=== PATIENT | female | born 1965 | race Caucasian/White ===

== ENCOUNTER → 2020-08-17 13:36 | Outpatient (CLI) | payer BC, SELFPAY ==
--- NOTE | ~2020-08-17 | MMUS_ITS ---
EXAMINATION: MM diagnostic [place] BI w [facility], US breast RT limited HISTORY: Small superficial pea size right breast lump TECHNIQUE: Additional 3-D tomosynthesis images of were performed and synthetic 2-D images were genera elias. CAD analysis was submitted and interpreted. High resolution breast ultrasound was performed. COMPARISON: 05/04/2019, 05/12/2017, 04/16/2016 bilateral digital screening mammogram examinations BREAST PARENCHYMAL COMPOSITION: The breasts are almost entirely fatty. FINDINGS: MAMMOGRAPHIC FINDINGS: A subtle several millimeter faint mammographic opacity is noted at the area of clinical complaint of small superficial PA-sized lateral right breast lump. Otherwise no suspicious mass, architectural distortion, malignant calcification, skin thickening or r etraction of either breast is evident. Right breast targeted ULTRASOUND: Targeted ultrasound at the area of clinical complaint at right breast 8:00 8 cm from the nipple revea ls a superficial parallel circumscribed 2.4 x 6.4 x 5.3 mm subcutaneous skin lesion, likely a sebaceo us cyst or possible solid skin lesion. IMPRESSION: 1. No mammographic evidence of malignancy; routine mammographic screening is recommended 2. 2.4 x 6.4 x 5.3 mm subcutaneous skin lesion of right breast 8:00 8 cm from nipple BI-RADS Category 2: Benign finding(s). Reviewed, dictated and finalized at location A. IMPRESSION: 1. No mammographic evidence of malignancy; routine mammographic screening is re commended 2. 2.4 x 6.4 x 5.3 mm subcutaneous skin lesion of right breast 8:00 8 cm from n ipple BI-RADS Category 2: Benign finding(s).
== END ==
PROVIDERS: Visit Provider Obstetrics & Gynecology Gynecology
DX: R92.8 Other abnormal and inconclusive findings on diagnostic imaging of breast (principal)
CPT/HCPCS: 76642; 77062; 77066; G0279

== ENCOUNTER → 2021-10-23 15:27 | Outpatient (CLI) | payer BC, SELFPAY ==
--- NOTE | ~2021-10-23 | MM_ITS ---
EXAMINATION: MM screening [facility] BI w [facility] HISTORY: Screening TECHNIQUE: Craniocaudal and mediolateral oblique 3-D tomosynthesis images were obtained and synthetic 2-D images were generated. CAD analysis was submitted and interpreted. COMPARISON: Comparison to multiple prior studies sequentially, with oldest reviewed study dated 12/14. BREAST PARENCHYMAL COMPOSITION: There are scattered areas of fibroglandular density. FINDINGS: There is no evidence of suspicious mass, calcification, or architectural distortion to sugg est malignancy in either breast. There has been no suspicious interval change. IMPRESSION: 1. No mammographic evidence of malignancy. 2. Recommend routine screening mammography in one year. BI-RADS Category 1: Negative Reviewed, dictated and finalized at location A.
== END ==
PROVIDERS: PCP Nurse Practitioner; Visit Provider Nurse Practitioner
DX: Z12.31 Encounter for screening mammogram for malignant neoplasm of breast (principal)
CPT/HCPCS: 77063; 77067

== ENCOUNTER 2022-01-07 08:35 | Outpatient (CLI) | payer BC, SELFPAY ==
[2022-01-07 19:24] LABS: Basophils Absolute Auto 0.1 K/mm3 (0.0-0.1); Eosinophils Absolute Auto 0.6 K/mm3 (0-0.3); Eosinophils Percent Auto 7.3 % (0-4.4); Hemoglobin 13.1 g/dL (12.0-15.0); Immature Granulocyte Absolute 0.05 K/mm3 (0.00-0.031); Immature Granulocyte Percent A 0.6 % (0-0.5); Lymphocytes Absolute Auto 2.39 K/mm3 (0.9-3.2); Mean Corpuscular HGB Conc 31.2 g/dl (32-36); Mean Corpuscular Hemoglobin 28.6 pg (26-34); Mean Corpuscular Volume 91.7 fl (80-100); Mean Platelet Volume 10.1 fl (7.4-10.4); Monocytes Absolute Auto 0.6 K/mm3 (0.1-0.6); Monocytes Percent Auto 7.4 % (2.6-8.5); Neutrophils Absolute Auto 4.5 K/mm3 (1.3-6.7); Neutrophils Percent Auto 54.7 % (45.5-73.1); Platelet Count Result 317 k/mm3 (150-375); Red Blood Count 4.58 M/mm3 (4.2-5.4); Red Cell Distribution Width 13.3 % (11.5-14.5); White Blood Count 8.3 K/mm3 (4.5-10.0)
[2022-01-07 19:48] LABS: Alanine Aminotransferase 23 U/L (6-35); Albumin Level 4.4 g/dL (3.5-5.1); Alkaline Phosphatase 102 U/L (38-126); Anion Gap 10 mmol/L (8-16); Aspartate Amino Transferase 66 U/L (14-36); Bilirubin,Total 0.4 mg/dL (0.2-1.3); Blood Urea Nitrogen 15 mg/dL (7-17); Calcium 9.3 mg/dL (8.4-10.2); Carbon Dioxide 28 mmol/L (22-30); Chloride 103 mmol/L (98-107); Cholesterol 169 mg/dL (0-200); Creatinine Urine 99.2 mg/dL; Estimated Glomerular Filt Rate > 60; Glucose 115 mg/dL (65-110); HDL Direct 36 mg/dL; Potassium 4.5 mmol/L (3.4-5.0); Sodium 141 mmol/L (137-145); Triglycerides 172 mg/dL (<150)
[2022-01-07 19:56] LABS: MALB Creatinine Ratio 7.3 mg/g (0-30); Microalbumin Urine Random 7.2 mg/L (0-16.7)
[2022-01-07 19:59] LABS: LDL Cholesterol Direct 92 mg/dL
== END 2022-01-07 08:36 | disposition home or self-care (01) ==
LOC: ANHGOSHLAB 08:39
PROVIDERS: PCP Nurse Practitioner; Visit Provider Nurse Practitioner
DX: E03.9 Hypothyroidism, unspecified (principal); E11.9 Type 2 diabetes mellitus without complications; E78.5 Hyperlipidemia, unspecified
CPT/HCPCS: 36415; 80053; 80061; 82043; 83036; 84443; 85025

== ENCOUNTER → 2022-12-01 13:39 | Outpatient (CLI) | payer BC, SELFPAY ==
--- NOTE | ~2022-12-01 | MM_ITS ---
EXAMINATION: MM screening [facility] BI w [facility] HISTORY: Screening TECHNIQUE: Craniocaudal and mediolateral oblique 3-D tomosynthesis images were obtained and synthetic 2-D images were generated. CAD analysis was submitted and interpreted. COMPARISON: No prior mammogram is available for comparison at this institution. BREAST PARENCHYMAL COMPOSITION: There are scattered areas of fibroglandular density. FINDINGS: There is no evidence of suspicious mass, calcification, or architectural distortion to sugg est malignancy in either breast. There has been no suspicious interval change. IMPRESSION: 1. No mammographic evidence of malignancy. 2. Recommend routine screening mammography in one year. BI-RADS Category 1: Negative Reviewed, dictated and finalized at location A.
== END ==
PROVIDERS: PCP Nurse Practitioner; Visit Provider Nurse Practitioner
DX: Z12.31 Encounter for screening mammogram for malignant neoplasm of breast (principal)
CPT/HCPCS: 77063; 77067

== ENCOUNTER 2023-01-08 10:07 | Outpatient (CLI) | payer BC, SELFPAY ==
[2023-01-08 19:04] LABS: Kit Draw Collected
== END 2023-01-08 10:08 | disposition home or self-care (01) ==
LOC: ANHGOSHLAB 10:09
PROVIDERS: PCP Nurse Practitioner; Visit Provider Family Medicine
DX: E03.9 Hypothyroidism, unspecified (principal); E11.9 Type 2 diabetes mellitus without complications; E55.9 Vitamin D deficiency, unspecified; E66.01 Morbid (severe) obesity due to excess calories; E78.5 Hyperlipidemia, unspecified
CPT/HCPCS: 36415

== ENCOUNTER 2023-02-27 17:45 | Emergency (ER) | payer BC, SELFPAY ==
--- NOTE | ~2023-02-27 | XR_ITS ---
EXAMINATION: XR chest 2V DATE: 02/27/2023 18:35 INDICATION: Cough. Chest pressure. TECHNIQUE: Frontal and lateral views of the chest were obtained. COMPARISON: Chest 2 views 11/30/2009 FINDINGS: A calcified left lung nodule and calcified left hilar lymph nodes are consistent with old g ranulomatous disease. No pleural effusion or pneumothorax. The heart size is normal. There is mild ch ronic anterior wedging of multiple thoracic vertebral bodies. Surgical clips in the right upper quadr ant are likely from cholecystectomy. IMPRESSION: 1. No acute cardiopulmonary disease. Reviewed, dictated and finalized at location E. [employer]
[2023-02-27 17:55] VITALS: BP 159/82; PULSE 97; RESP 16; TEMP 36.3; O2SAT 99
--- NOTE | 2023-02-27 17:55 | ECG_ITS ---
Measurements Intervals [place] Rate: 96 P: 44 DE: 171 QRS: -25 QRSD: 108 T: 21 QT: 360 QTc: 455 Interpretive Statements SINUS RHYTHM POSSIBLE LEFT ATRIAL ENLARGEMENT BORDERLINE R WAVE PROGRESSION, ANTERIOR LEADS BASELINE ARTIFACT- II, III, AVF BORDERLINE ECG NO PREVIOUS ECG AVAILABLE FOR COMPARISON Electronically Signed On 02-27-2023 19:22:07 AREA SECRETARY by Henry Hill D.O.
--- NOTE | 2023-02-27 18:03 | ED.URI ---
HPI - URI/Sore Throat General Chief Complaint: Upper Respiratory Infection Stated Complaint: COUGH/CHEST PRESSURE/NAUSEA/DRY HEAVES Time Seen by Provider: 02/27/23 18:03 Source: patient Mode of arrival: ambulatory Limitations: no limitations History of Present Illness HPI Narrative: 57 y/o female with history of diabetes and GERD presented for c/o mid chest pressure since last night. Still has some chest pressure, but states it has also moved to the abdomen causing nausea and dry heaves today. Also reports an episode of feeling cold, clammy, and dizzy with a brief heart flutter during dry heaves. Patient took Mucinex for symptoms, stating it feels like she is getting a cold. Denies palpitations, sob, wheezing, fatigue or fever. Currently finishing prednisone for hives. Related Data Home Medications Medication Instructions Recorded Confirmed progesterone micronized 200 mg 200 mg PO DAILY 08/24/20 02/27/23 capsule fexofenadine 180 mg tablet 180 mg PO DAILY 07/09/21 02/27/23 (Chayo Allergy) bupropion HCl 300 mg 24 hr tablet, 300 mg PO DAILY 07/08/22 02/27/23 extended release Allergies Allergy/AdvReac Type Severity Reaction Status Date / Time morphine Allergy Mild Hives Verified 02/27/23 17:52 Review of Systems Review of Systems: CONSTITUTIONAL: Denies body aches, fever, chills, or sweats. EYES: Denies visual changes, redness, or discharge. ENT: Denies rhinorrhea, congestion, sore throat, or otalgia. CARDIOVASCULAR: Reports chest pressure denies palpitations, or edema. RESPIRATORY: Denies cough or dyspnea. GASTROINTESTINAL: Reports nausea and dry heaves denies abdominal pain, vomiting, or diarrhea. GENITOURINARY: Denies dysuria or hematuria. SKIN: Reports rash MUSCULOSKELETAL: Denies back pain, joint pain, or myalgia. NEUROLOGIC: Denies headache, numbness, tingling, or weakness. All systems reviewed & are unremarkable except as noted in HPI and below PMFSH Past Medical History Medical History Anxiety Broken ankle (~2009) GERD (gastroesophageal reflux disease) Hyperlipidemia Hypothyroidism Left knee DJD Left knee pain Obesity, morbid, BMI 40.0-49.9 Right knee DJD Right knee pain Urge incontinence of urine Vitamin D deficiency Surgical History Surgical History H/O section History of cholecystectomy Family History Family History Unknown Diabetes mellitus [place] Grandparent Carcinoma of colon maternal grandparent Leukemia paternal grandparent Diabetes mellitus paternal grandparent Thyroid disorder maternal grandparent Cerebrovascular accident maternal grandparent Social History Social History Smoking status: Never smoker Alcohol intake: current Alcohol use details: averages 2-4 drinks monthly Substance use: never Substance use type: does not use Lack of Transportation: No Lack of Food: Never True Current Housing: I Have Housing Concerned About Future Housing: No Difficulty Paying Gas/Electric Bills: No Difficulty Paying for Meds: No Currently Unemployed: No Education: Associate Degree Difficulty w/ Childcare or Family Care: No Living arrangements: with family Occupation/Education: occupation Gender identity (if verbalized by the patient): Female Agree to blood products: Yes Comments At time of signature, I have reviewed and agree with nursing past medical, surgical, social and family history unless otherwise noted. Please see nursing chart for further information. There is no relevant family history pertinent to the presenting complaint Exam Narrative: GENERAL: Well-appearing, and in no acute distress. EYES: EOMI. No redness or drainage. Conjunctivae normal. ENT: Mucous m
== END 2023-02-27 18:52 | disposition short-term general hospital (02) ==
PROVIDERS: Emergency Provider Nurse Practitioner Family; PCP Family Medicine
DX: R07.89 Other chest pain (principal); Z20.822 Contact with and (suspected) exposure to COVID-19; K21.9 Gastro-esophageal reflux disease without esophagitis; E78.5 Hyperlipidemia, unspecified; E03.9 Hypothyroidism, unspecified; M17.0 Bilateral primary osteoarthritis of knee; E66.01 Morbid (severe) obesity due to excess calories; Z68.42 Body mass index [BMI] 45.0-49.9, adult; E11.9 Type 2 diabetes mellitus without complications
CPT/HCPCS: 71046; 87426; 87804; 93005; 99213; C9803; G0463

== ENCOUNTER 2023-02-27 19:10 | Observation (INO) | payer BC, SELFPAY ==
[2023-02-27] VITALS (18 sets, daily range): BP systolic 158–171; BP diastolic 74–96; PULSE 79–103; RESP 12–20; TEMP 36.6; O2SAT 96–100
--- NOTE | ~2023-02-27 | CT_ITS ---
EXAMINATION: CTA chest PE abdomen pel DATE: 02/27/2023 22:05 INDICATION: Chest pain. Shortness of breath. TECHNIQUE: Computed tomography angiography (CTA) of the chest was performed with 100 mL Omnipaque-350 intravenous contrast timed to evaluate the pulmonary arteries. Coronal maximum intensity projection 3D-reconstructions were created by the technologist. Computed tomography (CT) of the abdomen and pelv is was performed with intravenous contrast. Automated exposure control and iterative reconstruction t echnique were employed. The dose-length product was 3372.86 mGy-cm. COMPARISON: None. FINDINGS: CTA chest: A calcified left lung nodule and calcified left hilar and mediastinal lymph nodes are cons istent with old granulomatous disease. No pleural effusion. The heart size is normal. There are coron jeri artery calcifications. No pericardial effusion. The central pulmonary arteries are enlarged, cons istent with pulmonary arterial hypertension. There is no pulmonary embolus. There is moderate thoraci c spondylosis. There is mild chronic anterior wedging of multiple vertebral bodies. CT abdomen and pelvis: The liver is normal. There are changes of cholecystectomy. Calcifications in t he spleen are consistent with old granulomatous disease. The pancreas, adrenal glands, and kidneys ar e normal. Stool distends the rectum. There is diverticulosis of the colon without evidence of diverti culitis. The appendix is normal. There are no pathologically enlarged lymph nodes. There is no free i ntraperitoneal fluid. There is moderate lumbar spondylosis. IMPRESSION: 1. No pulmonary embolus. 2. Stool distends the rectum. Reviewed, dictated and finalized at location E. OR BI ARCHITECT
--- NOTE | 2023-02-27 19:14 | ECG_ITS ---
Measurements Intervals [place] Rate: 94 P: 34 MS: 173 QRS: -35 QRSD: 106 T: 16 QT: 355 QTc: 446 Interpretive Statements SINUS RHYTHM LEFT AXIS DEVIATION POOR R WAVE PROGRESSION, ANTERIOR LEADS BORDERLINE ECG COMPARED TO ECG 02/27/2023 18:06:00 LEFT-AXIS DEVIATION NOW PRESENT Electronically Signed On 02-27-2023 19:24:56 MEDIA ARTS PROFESSOR by Henry Hill D.O.
[2023-02-27 19:29] LABS: Basophils Absolute Auto 0.1 K/mm3 (0.0-0.1); Basophils Percent Auto 0.6 % (0.2-1.2); Eosinophils Absolute Auto 0.4 K/mm3 (0-0.3); Hematocrit 42.2 % (37.0-47.0); Hemoglobin 13.2 g/dL (12.0-15.0); Immature Granulocyte Percent A 2.5 % (0-0.5); Lymphocytes Absolute Auto 4.32 K/mm3 (0.9-3.2); Lymphocytes Percent Auto 21.6 % (18.3-44.2); Mean Corpuscular HGB Conc 31.3 g/dl (32-36); Mean Corpuscular Hemoglobin 27.8 pg (26-34); Mean Platelet Volume 9.2 fl (7.4-10.4); Monocytes Absolute Auto 1.3 K/mm3 (0.1-0.6); Monocytes Percent Auto 6.4 % (2.6-8.5); Neutrophils Absolute Auto 13.4 K/mm3 (1.3-6.7); Neutrophils Percent Auto 66.9 % (45.5-73.1); Platelet Count Result 397 k/mm3 (150-375); Red Blood Count 4.74 M/mm3 (4.2-5.4); Red Cell Distribution Width 13.9 % (11.5-14.5)
[2023-02-27 19:38] LABS: Alanine Aminotransferase 30 U/L (6-35); Albumin Level 4.5 g/dL (3.5-5.1); Alkaline Phosphatase 117 U/L (38-126); Anion Gap 11 mmol/L (8-16); Aspartate Amino Transferase 29 U/L (14-36); Bilirubin,Total 0.5 mg/dL (0.2-1.3); Blood Urea Nitrogen 21 mg/dL (7-17); Calcium 9.3 mg/dL (8.4-10.2); Carbon Dioxide 27 mmol/L (22-30); Chloride 97 mmol/L (98-107); Estimated CRCL calculation 135 ml/min; Estimated Glomerular Filt Rate > 60; Glucose 121 mg/dL (65-110); Lipase 84 U/L (23-300); Potassium 4.5 mmol/L (3.4-5.0); Sodium 135 mmol/L (137-145)
[2023-02-27 19:40] LABS: Partial Thromboplastin Time 29.9 SECONDS (22.3-36.8); Prothrombin Time 13.9 Seconds (11.1-14.7)
[2023-02-27 19:50] LABS: Troponin I < 0.012 ng/mL (0.000-0.034)
[2023-02-27] MEDS: ASPIRIN 81 MG CHEWABLE TABLET 324 MG PO (21:24)
[2023-02-27] MEDS: LACTATED RINGERS 1,000 ML 999 ML IV CONT (21:43)
[2023-02-27] MEDS: PANTOPRAZOLE SODIUM IV 40 MG VIAL IV PUSH (21:43)
--- NOTE | 2023-02-27 21:43 | ED.CHESTPAIN ---
HPI - Chest Pain General Chief Complaint: Chest Pain Stated Complaint: chest pressure, dizzy Time Seen by Provider: 02/27/23 21:07 Source: patient History of Present Illness HPI narrative: 57-year-old female with history of high cholesterol and diabetes presents emergency department today with complaints of intermittent midsternal chest pain with nausea and some diaphoresis that started last night. Patient was seen in urgent care today and sent here. Patient states the pain started last night was relieved with Mucinex. She did have coughing noted yesterday also. Upon awaking pain was noted again took Mucinex DM again with some relief but it again came back this afternoon. Denies any fevers, body aches, chills. Did have some nausea and dry heaving today. Denies any recent sick contacts. Patient does lead a sedentary lifestyle at work and is currently working on [employer] again and [employer] at home. Pain is midsternal and is like a pressure. Current the patient is pain-free at this time. MD complaint: chest pain Risk Factors Coronary artery disease risk factors: diabetes and hyperlipidemia Pulmonary embolism risk factors: morbid obesity Related Data Home Medications Medication Instructions Recorded Confirmed progesterone micronized 200 mg 200 mg PO DAILY 08/24/20 02/27/23 capsule fexofenadine 180 mg tablet 180 mg PO DAILY 07/09/21 02/27/23 (Chayo Allergy) bupropion HCl 300 mg 24 hr tablet, 300 mg PO DAILY 07/08/22 02/27/23 extended release Allergies Allergy/AdvReac Type Severity Reaction Status Date / Time morphine Allergy Mild Hives Verified 02/27/23 21:16 Review of Systems Review of Systems: All systems reviewed & are unremarkable except as noted in HPI and below PMFSH Past Medical History Medical History Anxiety Broken ankle (~2009) GERD (gastroesophageal reflux disease) Hyperlipidemia Hypothyroidism Left knee DJD Left knee pain Obesity, morbid, BMI 40.0-49.9 Right knee DJD Right knee pain Urge incontinence of urine Vitamin D deficiency Surgical History Surgical History H/O section History of cholecystectomy Family History Family History Unknown Diabetes mellitus [place] Grandparent Carcinoma of colon maternal grandparent Leukemia paternal grandparent Diabetes mellitus paternal grandparent Thyroid disorder maternal grandparent Cerebrovascular accident maternal grandparent Social History Social History Smoking status: Never smoker Alcohol intake: current Alcohol use details: averages 2-4 drinks monthly Substance use: never Substance use type: does not use Lack of Transportation: No Lack of Food: Never True Current Housing: I Have Housing Concerned About Future Housing: No Difficulty Paying Gas/Electric Bills: No Difficulty Paying for Meds: No Currently Unemployed: No Education: Associate Degree Difficulty w/ Childcare or Family Care: No Living arrangements: with family Occupation/Education: occupation Gender identity (if verbalized by the patient): Female Agree to blood products: Yes Exam Const: General: cooperative, healthy appearing, comfortable, no acute distress and well developed Orientation/consciousness: patient oriented x3 HENMT: Head: normal to inspection Eyes: General: appearance normal, both eyes and all related structures Resp: Effort & Inspection: normal respiratory effort and able to speak in complete sentences Auscultation: clear to auscultation bilaterally Cardio: Rate: regular rate Rhythm: regular rhythm Heart sounds: S1 normal heart sound present and S2 normal heart sound present GI: GI Palp: No abdominal tenderness, Yes Soft to palpation, No Hepatosple
[2023-02-27 23:05] LABS: Troponin I < 0.012 ng/mL (0.000-0.034)
--- NOTE | 2023-02-27 23:32 | PC.NURSE ---
Report received from SALEEM Paz. Assumed care of patient at this time.
[2023-02-28] VITALS (21 sets, daily range): BP systolic 129–167; BP diastolic 67–73; PULSE 77–91; RESP 13–22; TEMP 36.1–36.8; O2SAT 92–99; BMI 46.1
[2023-02-28 01:25] LABS: Influenza A QL RT-PCR Negative (Negative); Influenza B QL RT-PCR Negative (Negative); SARS-CoV-2 RNA PCR Negative (Negative)
[2023-02-28 01:58] LABS: Troponin I < 0.012 ng/mL (0.000-0.034)
--- NOTE | 2023-02-28 03:47 | ADMGEN ---
This patient, Natacha Rene, was admitted to IMU Room 213-01 on 02/28/23 at 0324. Patient/family oriented to hospital policies and general routines including ID bracelet, bed and alarms, visiting hours, pain management, procedures, bathroom and other care routines, personal items, smoking policy, room service/diet, and visiting hours. Information on how to activate the Rapid Response Team has been discussed. Patient/Family are encouraged to report perceived risks to care and to ask questions if they do not understand what they are told or what they should do.
[2023-02-28] MEDS: LORATADINE 10 MG TABLET PO (09:13)
[2023-02-28] MEDS: buPROPion HCL XL (24 HR) 150 MG TABCR 300 MG PO (09:13)
[2023-02-28] MEDS: predniSONE 10 MG TABLET PO (09:13)
[2023-02-28] MEDS: PANTOPRAZOLE 40 MG TABLET PO (09:13)
[2023-02-28] MEDS: LEVOTHYROXINE SODIUM 25 MCG TABLET PO (09:14)
[2023-02-28] MEDS: metFORMIN HCL 500 MG TABLET PO (09:14)
--- NOTE | 2023-02-28 10:47 | PM.SD2 ---
Same Day Admit/Disch: HPI History of Present Illness Chief complaint: Chest Pain Narrative: Patient is a 57 year old female with PMH of high cholesterol and diabetes admitted from ED with complaints of intermittent midsternal chest pain with nausea and some diaphoresis that started last night. Patient was seen in urgent care today and sent here. Patient states the pain started last night while she was at rest, sitting in a chair knitting. She denies history of anxiety or panic attacks. It was relieved with Mucinex which she took for some mild coughing. Denies any fevers, body aches, chills. Did have some nausea at the same time, but none since or prior. Denies any recent sick contacts. Patient does lead a sedentary lifestyle, but denies any new fatigue or weakness with exertion. Pain was midsternal and is like a pressure. Patient has been pain free since she has been here, received IV PPI in ER which did help. She denies any family history of cardiac disease or stroke. Both of her parents and siblings are living. She denies a history of asthma. Occasionally wakes up with feeling of phlegm in her throat and like there is something in her mid chest in the esophageal area. Does report some mild acid reflux. She denies recreational drug use, never smoker and drinks only a few times a month. [facility] Past Medical History Medical History Anxiety Broken ankle (~2009) GERD (gastroesophageal reflux disease) Hyperlipidemia Hypothyroidism Left knee DJD Left knee pain Obesity, morbid, BMI 40.0-49.9 Right knee DJD Right knee pain Urge incontinence of urine Vitamin D deficiency Surgical History Surgical History H/O section History of cholecystectomy Family History Family History Unknown Diabetes mellitus [place] Grandparent Diabetes mellitus paternal grandparent Leukemia paternal grandparent Carcinoma of colon maternal grandparent Thyroid disorder maternal grandparent Cerebrovascular accident maternal grandparent Father Hypertension Hyperlipemia Social History Social History Smoking status: Never smoker Second hand tobacco smoke exposure: No Alcohol intake: never Alcohol use details: averages 2-4 drinks monthly Substance use: never Substance use type: does not use Lack of Transportation: No Lack of Food: Never True Current Housing: I Have Housing Concerned About Future Housing: No Difficulty Paying Gas/Electric Bills: No Difficulty Paying for Meds: No Currently Unemployed: No Education: Associate Degree Difficulty w/ Childcare or Family Care: No Living arrangements: with family Occupation/Education: occupation Gender identity (if verbalized by the patient): Female Spiritual care concerns: No Agree to blood products: Yes Same Day Admit/Disch: Med Pre-admit Medications Home Medications Medication Instructions Recorded Confirmed Type fexofenadine 180 mg tablet 180 mg PO DAILY 07/09/21 02/28/23 History (Chayo Allergy) omeprazole 40 mg capsule,delayed 40 mg PO DAILY #14 caps 07/09/21 02/28/23 Rx release bupropion HCl 300 mg 24 hr tablet, 300 mg PO DAILY 07/08/22 02/28/23 History extended release levothyroxine 25 mcg tablet 25 mcg PO DAILY #90 tabs 10/06/22 02/28/23 Rx metformin 500 mg tablet 500 mg PO BID #180 tabs 01/12/23 02/28/23 Rx prednisone 10 mg tablet 10 mg PO DIRECTED #30 tabs 02/20/23 02/28/23 Rx atorvastatin 20 mg tablet (Lipitor) 20 mg PO HS 02/28/23 02/28/23 History dextromethorphan-guaifenesin ER 60 1 tablet PO Q12H 02/28/23 02/28/23 History mg-1,200 mg tab,extend release,12hr (Mucinex DM) meloxicam 15 mg tablet 15 mg PO DAILY PRN .Knee pain 02/28/23 02/28/23 History progesterone m
== END 2023-02-28 10:55 | disposition home or self-care (01) ==
LOC: ANHED 02-28 01:30 → ANHIMU 02-28 03:18
PROVIDERS: Emergency Medicine; Admitting Provider Internal Medicine; Emergency Provider Nurse Practitioner Family; PCP Family Medicine; Visit Provider Internal Medicine
DX: R07.9 Chest pain, unspecified (principal); K21.9 Gastro-esophageal reflux disease without esophagitis; E78.5 Hyperlipidemia, unspecified; E11.9 Type 2 diabetes mellitus without complications; F41.9 Anxiety disorder, unspecified; I44.4 Left anterior fascicular block; E55.9 Vitamin D deficiency, unspecified; M25.562 Pain in left knee; Z79.890 Hormone replacement therapy; E66.01 Morbid (severe) obesity due to excess calories; Z68.42 Body mass index [BMI] 45.0-49.9, adult; F10.90 Alcohol use, unspecified, uncomplicated; Z79.84 Long term (current) use of oral hypoglycemic drugs; Z79.52 Long term (current) use of systemic steroids; Z79.899 Other long term (current) drug therapy
CPT/HCPCS: 36415; 71046; 71275; 74177; 80053; 83690; 84484; 85025; 85610; 85730; 87426; 87636; 87804; 93005; 96361; 96374; 99213; 99285; A9270; C9113; C9803; G0378; G0463; J7120; J7512; Q9967

== ENCOUNTER 2023-06-08 10:06 | Outpatient (CLI) | payer OTHER, SELFPAY ==
[2023-06-08 12:59] LABS: Kit Draw Collected
== END 2023-06-08 10:07 | disposition home or self-care (01) ==
LOC: ANHGOSHLAB 10:09
PROVIDERS: PCP Family Medicine; Visit Provider Family Medicine
DX: E03.9 Hypothyroidism, unspecified (principal); E11.9 Type 2 diabetes mellitus without complications; E66.01 Morbid (severe) obesity due to excess calories; E78.5 Hyperlipidemia, unspecified
CPT/HCPCS: 36415

== ENCOUNTER 2023-10-07 08:51 | Outpatient (CLI) | payer OTHER, SELFPAY ==
[2023-10-07 12:45] LABS: Basophils Absolute Auto 0.1 K/mm3 (0.0-0.1); Basophils Percent Auto 0.8 % (0.2-1.2); Eosinophils Absolute Auto 0.5 K/mm3 (0-0.3); Eosinophils Percent Auto 5.2 % (0-4.4); Hematocrit 43.5 % (37.0-47.0); Hemoglobin 13.3 g/dL (12.0-15.0); Immature Granulocyte Absolute 0.04 K/mm3 (0.00-0.031); Immature Granulocyte Percent A 0.4 % (0-0.5); Lymphocytes Absolute Auto 2.45 K/mm3 (0.9-3.2); Lymphocytes Percent Auto 26.5 % (18.3-44.2); Mean Corpuscular HGB Conc 30.6 g/dl (32-36); Mean Corpuscular Hemoglobin 28.1 pg (26-34); Mean Platelet Volume 10.2 fl (7.4-10.4); Monocytes Absolute Auto 0.7 K/mm3 (0.1-0.6); Monocytes Percent Auto 7.8 % (2.6-8.5); Neutrophils Absolute Auto 5.5 K/mm3 (1.3-6.7); Neutrophils Percent Auto 59.3 % (45.5-73.1); Platelet Count Result 316 k/mm3 (150-375); Red Blood Count 4.73 M/mm3 (4.2-5.4); White Blood Count 9.2 K/mm3 (4.5-10.0)
[2023-10-07 13:23] LABS: Alanine Aminotransferase 21 U/L (6-35); Albumin Level 4.5 g/dL (3.5-5.1); Alkaline Phosphatase 99 U/L (38-126); Anion Gap 7 mmol/L (4-12); Aspartate Amino Transferase 36 U/L (14-36); Bilirubin,Total 0.5 mg/dL (0.2-1.3); Blood Urea Nitrogen 14 mg/dL (7-17); Calcium 9.7 mg/dL (8.4-10.2); Carbon Dioxide 29 mmol/L (22-30); Chloride 105 mmol/L (98-107); Cholesterol 169 mg/dL (0-200); Estimated Glomerular Filt Rate > 60; Glucose 87 mg/dL (65-110); HDL Direct 39 mg/dL; Potassium 4.6 mmol/L (3.4-5.0); Sodium 141 mmol/L (137-145); Triglycerides 187 mg/dL (<150)
[2023-10-07 13:31] LABS: Free T4 Free Thyroxine 1.82 ng/mL (0.78-2.19)
[2023-10-07 13:35] LABS: LDL Cholesterol Direct 106 mg/dL
[2023-10-07 13:48] LABS: Hemoglobin A1C 5.5 % (<5.7)
== END 2023-10-07 08:52 | disposition home or self-care (01) ==
LOC: ANHGOSHLAB 08:54
PROVIDERS: PCP Family Medicine; Visit Provider Family Medicine
DX: E78.5 Hyperlipidemia, unspecified (principal); E03.9 Hypothyroidism, unspecified; E11.9 Type 2 diabetes mellitus without complications; E66.01 Morbid (severe) obesity due to excess calories
CPT/HCPCS: 36415; 80053; 80061; 83036; 84439; 84443; 85025

== ENCOUNTER 2024-02-03 11:21 | Outpatient (CLI) | payer OTHER, SELFPAY ==
[2024-02-08 08:02] LABS: Kit Draw Collected
== END 2024-02-03 11:22 | disposition home or self-care (01) ==
LOC: ANHGOSHLAB 11:23
PROVIDERS: PCP Family Medicine; Visit Provider Family Medicine
DX: E03.9 Hypothyroidism, unspecified (principal); E11.9 Type 2 diabetes mellitus without complications; E55.9 Vitamin D deficiency, unspecified; E66.01 Morbid (severe) obesity due to excess calories; E78.5 Hyperlipidemia, unspecified; F41.9 Anxiety disorder, unspecified
CPT/HCPCS: 36415

== ENCOUNTER 2024-02-18 13:51 | Outpatient (CLI) | payer OTHER, SELFPAY ==
--- NOTE | ~2024-02-18 | MM_ITS ---
EXAMINATION: MM screening [facility] BI w omar HISTORY: Screening mammogram TECHNIQUE: Craniocaudal and mediolateral oblique 3-D tomosynthesis images were obtained and synthetic 2-D images were generated. CAD analysis was submitted and interpreted. COMPARISON: 12/01/2022, 10/23/2021, 08/17/2020, 05/04/2019 BREAST PARENCHYMAL COMPOSITION:Not Dense. The breasts are almost entirely fatty FINDINGS: No suspicious mass, calcification, or architectural distortion are identified in either ayde ast to suggest malignancy. There has been no suspicious interval change. IMPRESSION: No mammographic evidence of malignancy. Recommend routine screening mammography in one year. BI-RADS Category 1: Negative Reviewed, dictated and finalized at location .
== END 2024-02-18 13:52 | disposition home or self-care (01) ==
LOC: MICIMG 13:52
PROVIDERS: PCP Nurse Practitioner; Visit Provider Nurse Practitioner
DX: Z12.31 Encounter for screening mammogram for malignant neoplasm of breast (principal)
CPT/HCPCS: 77063; 77067

== ENCOUNTER 2024-03-08 00:12 | Day surgery (SDC) | payer OTHER, SELFPAY ==
[2024-02-25 12:25] VITALS: BMI 36.8
[2024-03-08 06:18] VITALS: BP 137/74; PULSE 91; RESP 18; TEMP 36.2; O2SAT 98; BMI 37.3
[2024-03-08 06:22] LABS: Glucose Point of Care 97 mg/dl (65-105)
[2024-03-08] MEDS: LACTATED RINGERS 1,000 ML 150 ML IV CONT (06:39)
--- NOTE | 2024-03-08 07:22 | WPDANESEPPF ---
Anes - Initial Pre Proc Eval Procedure: Operation Date: 03/08/24 07:30 Proposed Procedures p Screening Colonoscopy - Thanh Alcantara MD Date/Time: 03/08/24 07:22 Surgeon: Thanh Alcantara MD Pre Op Diagnosis: hx colon polyps Patient Data Age: 59 Gender: F Height: 1.73 m Weight: 111.4 kg Last Vital Signs Temp 97.1 F L 03/08/24 06:18 Pulse 91 03/08/24 06:18 Resp 18 03/08/24 06:18 BP 137/74 03/08/24 06:18 Pulse Ox 98 03/08/24 06:18 O2 Del Method Room Air 03/08/24 06:18 Allergies Allergy/AdvReac Type Severity Reaction Status Date / Time morphine Allergy Mild Hives Verified 03/08/24 06:22 Home Medications Medication Instructions Recorded Confirmed Type fexofenadine 180 mg tablet 180 mg PO DAILY 07/09/21 03/08/24 History (Chayo Allergy) progesterone micronized 100 mg 100 mg PO HS 02/28/23 03/08/24 History capsule bupropion HCl 300 mg 24 hr tablet, 300 mg PO DAILY #90 tabs 04/22/23 03/08/24 Rx extended release meloxicam 15 mg tablet 15 mg PO DAILY PRN .Knee pain #60 04/22/23 03/08/24 Rx tabs atorvastatin 20 mg tablet (Lipitor) 20 mg PO HS #90 tabs 10/06/23 03/08/24 Rx levothyroxine 25 mcg tablet 25 mcg PO DAILY #90 tabs 10/06/23 03/08/24 Rx tirzepatide 10 mg/0.5 mL 10 mg (0.5 mL) subcut WEEKLY #6 mL 12/22/23 03/08/24 Rx subcutaneous pen injector (Mounjaro) ergocalciferol (vitamin D2) 1,250 1,250 mcg PO WEEKLY #12 caps 02/08/24 03/08/24 Rx mcg (50,000 unit) capsule (Vitamin D2) esomeprazole magnesium 40 mg 40 mg PO DAILY 02/08/24 03/08/24 History capsule,delayed release metformin 500 mg tablet See Rx Instructions .Route 03/01/24 03/08/24 Rx .COMPLEX #180 tabs Laboratory Tests 03/08/24 06:19 POC Capillary Glucose 97 mg/dl (65-105) Patient hx anesthesia problems: none Family hx anesthesia problems: none Results Review: All pre-operative results and documents have been reviewed as part of the pre-operative evaluation. [facility] Past Medical History Medical History Anxiety Broken ankle (~2009) GERD (gastroesophageal reflux disease) Hyperlipidemia Hypothyroidism Left knee DJD Left knee pain Obesity, morbid, BMI 40.0-49.9 Right knee DJD Right knee pain Urge incontinence of urine Vitamin D deficiency Surgical History Surgical History H/O section History of cholecystectomy Family History Family History Unknown Diabetes mellitus [place] Grandparent Diabetes mellitus paternal grandparent Leukemia paternal grandparent Carcinoma of colon maternal grandparent Thyroid disorder maternal grandparent Cerebrovascular accident maternal grandparent Father Hypertension Hyperlipemia Social History Social History Smoking status: Never smoker Second hand tobacco smoke exposure: No Alcohol intake: never Alcohol use details: averages 2-4 drinks monthly Substance use: never Substance use type: does not use Lack of Transportation: No Lack of Food: Never True Current Housing: I Have Housing Concerned About Future Housing: No Difficulty Paying Gas/Electric Bills: No Difficulty Paying for Meds: No Currently Unemployed: No Education: Associate Degree Difficulty w/ Childcare or Family Care: No Living arrangements: with family Occupation/Education: occupation Gender identity (if verbalized by the patient): Female Spiritual care concerns: No Agree to blood products: Yes Anes - Eval Final PreProcedure Day of Procedure 03/08/24 07:22 Patient weight: obese Heart: regular rate and rhythm Lungs: clear to auscultation Airway: Mallampati scale class II Neurological: alert and oriented Last oral intake: >/= 8 hours ASA classification: III Emergent: no Anesthetic plan: proceed Anesthesia type and monitoring: general GIVS and standard monitoring Results Review: All pre-operative results and documents have been reviewed as part of the pre-operative evaluation. DM fsbs 97, hyperlipidemia, hypothyroidism. Pt reports that she is active w walking on the treadmill, no cp or sob. Informed Consent: The patient's anesthetic plan and its attendant risks and benefits were discussed with the patient/family/POA. Questions were solicited and answers provided to the satisfaction of the patient/family/POA.
--- NOTE | 2024-03-08 07:29 | PM.IMHP ---
H&P: HPI History of Present Illness Date/Time: 03/08/24 07:29 Chief Complaint: History of polyps Narrative: The patient has a history of colonic polyps, the last colonoscopy was 5 years ago Review of Systems Review of Systems: All systems reviewed & are unremarkable except as noted in HPI and below PMFSH Past Medical History Medical History Anxiety Broken ankle (~2009) GERD (gastroesophageal reflux disease) Hyperlipidemia Hypothyroidism Left knee DJD Left knee pain Obesity, morbid, BMI 40.0-49.9 Right knee DJD Right knee pain Urge incontinence of urine Vitamin D deficiency Surgical History Surgical History H/O section History of cholecystectomy Family History Family History Unknown Diabetes mellitus [place] Grandparent Diabetes mellitus paternal grandparent Leukemia paternal grandparent Carcinoma of colon maternal grandparent Thyroid disorder maternal grandparent Cerebrovascular accident maternal grandparent Father Hypertension Hyperlipemia Social History Social History Smoking status: Never smoker Second hand tobacco smoke exposure: No Alcohol intake: never Alcohol use details: averages 2-4 drinks monthly Substance use: never Substance use type: does not use Lack of Transportation: No Lack of Food: Never True Current Housing: I Have Housing Concerned About Future Housing: No Difficulty Paying Gas/Electric Bills: No Difficulty Paying for Meds: No Currently Unemployed: No Education: Associate Degree Difficulty w/ Childcare or Family Care: No Living arrangements: with family Occupation/Education: occupation Gender identity (if verbalized by the patient): Female Spiritual care concerns: No Agree to blood products: Yes Meds Home Medications and Allergies Home Medications Medication Instructions Recorded Confirmed Type fexofenadine 180 mg tablet 180 mg PO DAILY 07/09/21 03/08/24 History (Chayo Allergy) progesterone micronized 100 mg 100 mg PO HS 02/28/23 03/08/24 History capsule bupropion HCl 300 mg 24 hr tablet, 300 mg PO DAILY #90 tabs 04/22/23 03/08/24 Rx extended release meloxicam 15 mg tablet 15 mg PO DAILY PRN .Knee pain #60 04/22/23 03/08/24 Rx tabs atorvastatin 20 mg tablet (Lipitor) 20 mg PO HS #90 tabs 10/06/23 03/08/24 Rx levothyroxine 25 mcg tablet 25 mcg PO DAILY #90 tabs 10/06/23 03/08/24 Rx tirzepatide 10 mg/0.5 mL 10 mg (0.5 mL) subcut WEEKLY #6 mL 12/22/23 03/08/24 Rx subcutaneous pen injector (Mounjaro) ergocalciferol (vitamin D2) 1,250 1,250 mcg PO WEEKLY #12 caps 02/08/24 03/08/24 Rx mcg (50,000 unit) capsule (Vitamin D2) esomeprazole magnesium 40 mg 40 mg PO DAILY 02/08/24 03/08/24 History capsule,delayed release metformin 500 mg tablet See Rx Instructions .Route 03/01/24 03/08/24 Rx .COMPLEX #180 tabs Allergies Allergy/AdvReac Type Severity Reaction Status Date / Time morphine Allergy Mild Hives Verified 03/08/24 06:22 Vital Signs Vital Signs - 24 hr 03/08/24 06:18 Temperature 97.1 F L Pulse Rate 91 Respiratory Rate 18 Blood Pressure 137/74 Pulse Oximetry 98 Oxygen Delivery Room Air Exam Const: General: cooperative and healthy appearing Resp: Effort & Inspection: normal respiratory effort and able to speak in complete sentences Auscultation: clear to auscultation bilaterally Cardio: Rate: regular rate Rhythm: regular rhythm GI: Inspection: normal to inspection GI Palp: No No hepatosplenomegaly present Auscultation: normal bowel sounds Rectal Exam: deferred Skin: General skin exam: normal color Psych: Appearance: grossly normal Mental Status: mental status grossly normal Assessment and Plan Assessment and plan (1) History of colonic polyps: Code(s): Z86.0100 - Personal history of colon polyps, unspecified Status: Acute Assessment and Plan: The patient is deemed a good candidate for the procedure. Consent signed. Will proceed.
[2024-03-08 08:04] VITALS: BP 102/64; PULSE 74; RESP 17; O2SAT 100
[2024-03-08 08:14] VITALS: BP 94/54; PULSE 74; RESP 14; O2SAT 100
[2024-03-08 08:24] VITALS: BP 107/64; PULSE 72; RESP 14; O2SAT 100
== END 2024-03-08 08:30 | disposition home or self-care (01) ==
PROVIDERS: PCP Nurse Practitioner; Referring Provider Obstetrics & Gynecology Gynecology; Visit Provider Internal Medicine Gastroenterology
PROC: 0DJD8ZZ Inspection of Lower Intestinal Tract, Via Natural or Artificial Opening Endoscopic (ICD-10-PCS; CPT 45378; principal; 2024-03-08 07:30)
DX: Z12.11 Encounter for screening for malignant neoplasm of colon (principal); D12.3 Benign neoplasm of transverse colon; K64.0 First degree hemorrhoids; E78.5 Hyperlipidemia, unspecified; E03.9 Hypothyroidism, unspecified; F41.9 Anxiety disorder, unspecified; K21.9 Gastro-esophageal reflux disease without esophagitis; M17.0 Bilateral primary osteoarthritis of knee; N39.41 Urge incontinence; E55.9 Vitamin D deficiency, unspecified; E66.9 Obesity, unspecified; Z68.37 Body mass index [BMI] 37.0-37.9, adult; Z79.85 Long-term (current) use of injectable non-insulin antidiabetic drugs; Z79.84 Long term (current) use of oral hypoglycemic drugs; Z98.890 Other specified postprocedural states; Z90.49 Acquired absence of other specified parts of digestive tract; Z80.0 Family history of malignant neoplasm of digestive organs; Z82.49 Family history of ischemic heart disease and other diseases of the circulatory system
CPT/HCPCS: 45385; 82948; 88305; J2003; J2704; J7120

== ENCOUNTER 2024-05-30 12:35 | Outpatient (CLI) | payer OTHER, SELFPAY ==
--- NOTE | ~2024-05-30 | DEXA_ITS ---
Bone Density Report Name: ALIYAH GALINDO Age: 59 Sex: Female Ethnicity: White Date of : 1965 Indication: postmenopausal; screening for osteoporosis; Referring Provider: Ashly, Criselda Study: Bone densitometry was performed. Exam Date: May 30, 2024 Accession number: [id number] Bone Density: Region BMD T-score Z-score Classification AP Spine(L1-L4) 1.039 -0.1 1.2 Normal Femoral Neck (Left) 0.801 -0.4 0.8 Normal Total Hip (Left) 0.947 0.0 0.9 Normal Femoral Neck (Right) 0.814 -0.3 0.9 Normal Total Hip (Right) 0.914 -0.2 0.6 Normal Femoral Neck Mean 0.808 -0.4 0.8 Normal Total Hip Mean 0.930 -0.1 0.8 Normal World Health Organization criteria for BMD impression classify patients as: Normal (T-score at or above -1.0), Osteopenia (T-score between -1.0 and -2.5), or Osteoporosis (T-score at or below -2.5). Clinical Information Provided by Patient: Has used the following medications: Vitamin D, Calcium Patient maximum height was 69 Menopause Age: 50 Does not regularly consume dairy products Drinks caffeinated beverages Onset of menses at age 14 Number of children 2 Impression: The patient has normal bone mass. Discussion: BONE DENSITY IS ABOVE THE MINIMUM DESIRABLE LEVEL AT ALL SKELETAL SITES TESTED. This patient?s bone mineral density is above the minimum desirable level (T-score -1.0 or better) at all sites measured. The patient should follow a healthful lifestyle (good nutrition with adequate calcium and vitamin D, and appropriate weight-bearing exercise). Follow-Up: Consider repeating this study in 5 years or sooner if there is some new clinical indication. Reported by: MARIE on 05/30/2024 12:54:00 PM. Reviewed, dictated and finalized at location A.
== END 2024-05-30 12:36 | disposition home or self-care (01) ==
PROVIDERS: PCP Family Medicine; Visit Provider Nurse Practitioner
DX: Z78.0 Asymptomatic menopausal state (principal)
CPT/HCPCS: 77080

== ENCOUNTER 2025-04-11 09:48 | Outpatient (CLI) | payer OTHER, SELFPAY ==
--- NOTE | ~2025-04-11 | MM_ITS ---
EXAMINATION: MM screening miles BI w [facility] HISTORY: Screening. TECHNIQUE: Craniocaudal and mediolateral oblique 3-D tomosynthesis images were obtained and synthetic 2-D images were generated. CAD analysis was submitted and interpreted. COMPARISON: 2023, 2022, and 2021 BREAST PARENCHYMAL COMPOSITION: Not Dense: The breasts are almost entirely fatty FINDINGS: No suspicious masses are seen. There are no suspicious calcifications. No unexplained architectural distortion is seen. There are no skin or nipple abnormalities identified. There is no adenopathy seen on the images submitted. IMPRESSION: No mammographic evidence to suggest malignancy is seen. The patient may return to screening mammography as per ACR guidelines. BI-RADS 1 - Negative. Reviewed, dictated and finalized at location C. GHT BOOKER
== END 2025-04-11 09:49 | disposition home or self-care (01) ==
PROVIDERS: PCP Family Medicine; Visit Provider Obstetrics & Gynecology Gynecology
DX: Z12.31 Encounter for screening mammogram for malignant neoplasm of breast (principal)
CPT/HCPCS: 77063; 77067